=== PATIENT | male | born 1940 | race Caucasian/White ===

== ENCOUNTER → 2018-01-07 10:23 | Outpatient (POV) | payer MEDICARE, SELFPAY ==
[2018-01-07 11:16] VITALS: BP 132/82; PULSE 78; RESP 18; O2SAT 98
== END ==
PROVIDERS: Visit Provider Clinical Nurse Specialist Family Health
DX: M51.16 Intervertebral disc disorders with radiculopathy, lumbar region (principal); M46.1 Sacroiliitis, not elsewhere classified
CPT/HCPCS: 27096; 62368; G0260

== ENCOUNTER → 2018-08-04 12:43 | Outpatient (POV) | payer MEDICARE, SELFPAY ==
[2018-08-04 13:20] VITALS: BP 152/96; PULSE 76; RESP 18; O2SAT 98; BMI 25.8
--- NOTE | 2018-08-04 13:36 | XR_ITS ---
EXAM: XR lumbar spine min 4V HISTORY: ITS.REASON: INCREASED BACK PAIN ORDERING PHYSICIAN: Adriana Mcwilliams APRN PATIENT AGE: 78 years COMPARISON: None FINDINGS: There is been prior lumbar surgery with interpedicular screws posteriorly at L2 and L3 with connecting maximo. There is mild wedging of L2 anteriorly with severe degenerative disc disease at L1-L2 and L2-L3. There is mild retrolisthesis of L3 on L4 of 5 mm with degenerative disc disease at L3-L4. There is mild anterolisthesis of L5 on S1 of 3 mm which a disc disease at L5-S1. Prominent bony hypertrophic changes are present anteriorly and laterally at L1-L2 and L2-L3. There is reversal of the lumbar lordosis in the upper lumbar spine. There are 3 metallic rods are present stabilizing the SI joint on the left superiorly. A pain pump is present with the superior tip of the catheter at the T10 level. There is mild sclerosis of the right SI joint inferiorly No acute fracture or dislocation. No lytic or blastic change. IMPRESSION: Extensive postsurgical and degenerative changes as described above. PLEASE SEE ABOVE FOR DETAILED DESCRIPTION AT EACH LEVEL.
--- NOTE | 2018-08-04 13:36 | XR_ITS ---
EXAM: XR thoracic spine 3V HISTORY: ITS.REASON: INCREASED BACK PAIN Comparison: None FINDINGS: There is been prior anterior cervical disc fusion at C6, C7, and T1. There is mild thoracic curvature convex left. No acute fracture or dislocation. Mild degenerative disc disease is present in the lower thoracic spine. There is mild anterolisthesis of T2 on T3 of 4 mm. The cervical thoracic junction is not well delineated on the lateral view due to artifact from overlying humeral prosthesis. IMPRESSION: 1. No acute finding. 2. Postsurgical and degenerative changes. 3. 4 mm anterolisthesis of T2 on T3 of 4 mm.
--- NOTE | 2018-08-05 08:34 | P.PCN_ITS ---
- Procedure Date: 08/04/18 Time: 14:00 Anesthesiologist:: Adriana Mcwilliams APRN Complications:: None Pre-procedure Diagnosis:: Post laminectomy syndrome, degenerative disc disease lumbar spine with lumbar radiculopathy Post-procedure Diagnosis:: Same Indications for Procedure:: Patient is a pleasant 78-year-old white male who presents today for intrathecal pain pump reprogram. Patient is having extreme pain. This is changed recently after a fall out of bed. Patient was sent for stat x-rays which showed postsurgical changes with his hardware along with a potential compression. Patient and I discussed increasing his pain pump we will do so today. He rates his pain an 8 out of 10. We will also send him to the surgeon for consultation. He is currently on a Dilaudid dose of 0.9 mg a day Physical Exam General: Alert and oriented x3, no acute distress, pleasant and cooperative, [on room air] Lungs: Resps E/U, Symmetrical chest expansion, Eyes: PERRL Musculoskeletal: Flexion and extension of lumbar spine somewhat guarded secondary to pain, deep tendon reflexes normal, strength in upper and lower extremities [5/5], [abnormal gait noted] Neurological: speech clear, senior service aide equal, no gross sensory deficits Procedure Details:: Informed consent was obtained and the risk and benefits of the procedure were explained to the patient. The patient was taken to the procedure room where noninvasive monitoring was placed including noninvasive blood pressure cuff and pulse oximeter. Patient's pump was interrogated and reprogrammed. The infusion rate was increased to 1.5 mg of Dilaudid a day. The patient tolerated the procedure well. Plan and Disposition:: We will see the patient back at his next intrathecal pain pump refill and reprogram. We will add bupivacaine 5 mg/mL to his Dilaudid 10 mg/mL. Patient is instructed to call the office if he has any issues. Patient's BERNA reviewed and appropriate [facility] #[id number]. We will also send him to Dr. Tatyana mcgill. Dr. Vergara has reviewed this note and agrees with this plan of care. This note was dictated using voice recognition software and may contain errors or omissions
== END ==
LOC: SC.PAIN 13:30 → RAD 13:31
PROVIDERS: Visit Provider Clinical Nurse Specialist Family Health
DX: M51.16 Intervertebral disc disorders with radiculopathy, lumbar region (principal); M96.1 Postlaminectomy syndrome, not elsewhere classified
CPT/HCPCS: 62368; 72072; 72110